=== PATIENT | female | born 1990 | race Caucasian/White ===

== ENCOUNTER 2017-01-04 12:01 | Emergency (ER) | payer OTHER ==
[~2017-01-04] VITALS: Ht 180.3 cm; Wt 90.7 kg
[~2017-01-04 12:01] MED LIST: PHEN95TA24 PO
[2017-01-04 12:53] VITALS: BP 108/67
[2017-01-04] MEDS ORDERED: cefTRIAXone 250 MG in LIDOCAINE 1% ED 0.9 ML IM ONE (18:05)
[2017-01-04] MEDS ORDERED: AZITHROMYCIN 250 MG TAB PO ONE (18:05)
[2017-01-04 18:47] VITALS: BP 101/61
[2017-01-06 06:32] LABS: CHLAMYDIA TRACHOMATIS AMP DNA Negative (Negative)
== END 2017-01-04 18:47 | disposition home or self-care (01) ==
LOC: MED 12:01
DX: N39.0 Urinary tract infection, site not specified (principal); F17.200 Nicotine dependence, unspecified, uncomplicated
CPT/HCPCS: 36415; 81002; 81025; 87491; 96372; 99283; J0696; J2001

== ENCOUNTER 2022-03-06 17:38 | Emergency (ER) | payer OTHER ==
[~2022-03-06] VITALS: Ht 180.3 cm; Wt 95.3 kg
[2022-03-06 17:45] VITALS: BP 122/65
--- NOTE | 2022-03-06 18:07 | NUR ---
DR CHEEMA AT BEDSIDE EVALUATING PT
--- NOTE | 2022-03-06 18:15 | NUR ---
32 Y/O FEMALE C/O VAGINAL BLEEDING X1 HOUR, STATES SHE IS CURRENTLY 17 WEEKS . ALSO C/O ABDOMINAL PAIN RADIATING TO BACK X1 MONTH. DENIES N/V/D OR URINARY SYMPTOMS. PATIENT IS A0. PT DENIES FEVER,DYSURIA, HEMATURIA, CVA TENDERNESS. PT ALERT AND ORIENTED X4. BED LOCKED IN LOWEST POSITION. BED RAIL X1. PMH: DENIES NKA
[2022-03-06 18:43] LABS: BASOPHILS % (AUTO) 0.2 % (0.0-2.0); EOSINOPHILS # (AUTO) 0.1 K/uL (0-0.4); EOSINOPHILS % (AUTO) 0.8 % (0.0-4.0); HEMATOCRIT 38.2 % (36-48); HEMOGLOBIN 12.8 g/dL (12.0-16.0); LYMPHOCYTES # (AUTO) 1.6 K/uL (2.5-16.5); LYMPHOCYTES % (AUTO) 17.2 % (20.5-51.1); MEAN CORPUSCULAR HEMOGLOBIN 28 pg (27-31); MEAN CORPUSCULAR HGB CONC 34 g/dL (33-37); MEAN CORPUSCULAR VOLUME 83.6 fL (80-94); MONOCYTES # (AUTO) 0.6 K/uL (0.8-1.0); MONOCYTES % (AUTO) 6.4 % (1.7-9.3); NEUTROPHILS # (AUTO) 6.9 K/uL (1.8-7.7); NEUTROPHILS % (AUTO) 75.4 % (42.2-75.2); PLATELET COUNT (AUTO) 260 K/uL (140-450); RED BLOOD CELL COUNT(AUTO) 4.57 MIL/uL (4.20-5.40); RED CELL DISTRIBUTION WIDTH 13.9 % (11.6-13.7); WHITE BLOOD COUNT (AUTO) 9.1 K/uL (4.8-10.8)
--- NOTE | 2022-03-06 18:57 | NUR ---
UNABLE TO OBTAIN URINE SAMPLE BECAUSE PT NEEDS TO HAVE US WITH A FULL BLADDER. US ORDERED.
--- NOTE | 2022-03-06 19:15 | NUR ---
REPORT RECEIVED FROM TETO PEARSON
--- NOTE | 2022-03-06 19:16 | NUR ---
Pt report given to LILI MITCHELL. Transfer of care at this time.
[2022-03-06 19:17] LABS: ALBUMIN 2.8 g/dL (3.4-5.0); ANION GAP 11.4 (8-16); CARBON DIOXIDE 27.7 mmol/L (21-32); CREATININE 0.5 mg/dL (0.6-1.3); POTASSIUM 4.1 mmol/L (3.5-5.1); TOTAL BILIRUBIN 0.7 mg/dL (0.0-1.0)
--- NOTE | 2022-03-06 20:45 | NUR ---
URINE OBTAINED AND SENT TO LAB
[2022-03-06 21:24] LABS: APPEARANCE,URINE CLEAR (CLEAR); BILIRUBIN,URINE 1+ (NEGATIVE); BLOOD, URINE NEGATIVE (NEGATIVE); COLOR,URINE DARK YELLOW (YELLOW); LEUKOCYTE ESTERASE ,URINE NEGATIVE (NEGATIVE); NITRITE, URINE NEGATIVE (NEGATIVE); UGLUCOSE NEGATIVE (NEGATIVE)
--- NOTE | 2022-03-06 21:36 | NUR ---
US AT BEDSIDE
--- NOTE | 2022-03-06 21:37 | NUR ---
US DONE AND ER MD AT BEDSIDE
[2022-03-06 22:56] VITALS: BP 95/67
--- NOTE | 2022-03-06 22:56 | NUR ---
Patient discharged with v/s stable. Written and verbal after care instructions given and explained. Patient verbalized understanding. Ambulatory with steady gait. All questions addressed prior to discharge. Advised to follow up with PMD.
--- NOTE | 2022-03-06 22:59 | NUR ---
The patient's care was reviewed and supervised by Kym Metzger RN.
== END 2022-03-06 22:56 | disposition home or self-care (01) ==
LOC: MED 17:38
DX: O44.02 Complete placenta previa NOS or without hemorrhage, second trimester (principal); O26.612 Liver and biliary tract disorders in pregnancy, second trimester; Z3A.17 17 weeks gestation of pregnancy
CPT/HCPCS: 36415; 76705; 76805; 80053; 81003; 83690; 84702; 85025; 86900; 86901; 99284; Q0092